=== PATIENT | female | born 1960 | race Caucasian/White ===

== ENCOUNTER 2020-10-22 10:23 | Outpatient (CLI) | payer OTHER, SELFPAY ==
[2020-10-22 10:54] LABS: Basophils Percent Auto 0.3 % (0.2-1.2); Eosinophils Absolute Auto 0.2 K/mm3 (0-0.3); Eosinophils Percent Auto 1.5 % (0-4.4); Hematocrit 49.3 % (37.0-47.0); Hemoglobin 16.2 g/dL (12.0-15.0); Immature Granulocyte Absolute 0.03 K/mm3 (0.00-0.031); Immature Granulocyte Percent A 0.3 % (0-0.5); Lymphocytes Percent Auto 28.7 % (18.3-44.2); Mean Corpuscular HGB Conc 32.9 g/dl (32-36); Mean Corpuscular Hemoglobin 29.5 pg (26-34); Mean Corpuscular Volume 89.8 fl (80-100); Mean Platelet Volume 10.8 fl (7.4-10.4); Monocytes Absolute Auto 0.8 K/mm3 (0.1-0.6); Monocytes Percent Auto 8.1 % (2.6-8.5); Neutrophils Percent Auto 61.1 % (45.5-73.1); Platelet Count Result 189 k/mm3 (150-375); Red Blood Count 5.49 M/mm3 (4.2-5.4); Red Cell Distribution Width 14.3 % (11.5-14.5); White Blood Count 9.8 K/mm3 (4.5-10.0)
[2020-10-22 11:04] LABS: Anion Gap 9 mmol/L (8-16); Blood Urea Nitrogen 26 mg/dL (7-17); Calcium 9.2 mg/dL (8.4-10.2); Carbon Dioxide 26 mmol/L (22-30); Chloride 106 mmol/L (98-107); Cholesterol 118 mg/dL (0-200); Estimated Glomerular Filt Rate > 60; Glucose 109 mg/dL (65-110); HDL Direct 49 mg/dL; Potassium 4.2 mmol/L (3.4-5.0); Sodium 141 mmol/L (137-145); Triglycerides 150 mg/dL (<150)
[2020-10-22 11:15] LABS: LDL Cholesterol Direct 51 mg/dL
[2020-10-22 11:41] LABS: Free T4 Free Thyroxine 0.98 ng/mL (0.78-2.19); Vitamin D 25 Hydroxy 21.1 ng/mL
== END 2020-10-22 10:24 | disposition home or self-care (01) ==
LOC: ANHLAB 10:25
PROVIDERS: PCP Family Medicine; Visit Provider Family Medicine
DX: I10 Essential (primary) hypertension (principal); E55.9 Vitamin D deficiency, unspecified; R79.89 Other specified abnormal findings of blood chemistry; E03.9 Hypothyroidism, unspecified; E78.2 Mixed hyperlipidemia; Z13.220 Encounter for screening for lipoid disorders
CPT/HCPCS: 36415; 80048; 80061; 82306; 84439; 84443; 85025

== ENCOUNTER 2021-04-29 10:54 | Outpatient (CLI) | payer BC, SELFPAY ==
--- NOTE | ~2021-04-29 | XR_ITS ---
EXAMINATION: XR shoulder LT min 2V, XR shoulder RT min 2V DATE: 04/29/2021 11:18 INDICATION: Right shoulder pain TECHNIQUE: 1. AP internally and externally rotated, AP oblique externally rotated and axillary views of the left shoulder were obtained. 2. AP internally and externally rotated, AP oblique externally rotated and axillary views of the righ t shoulder were obtained. COMPARISON: None FINDINGS: Normal alignment at both shoulders. No fracture. Minimal osteoarthritis at the bilateral acromioclav icular joints and mild osteoarthritis at the left glenohumeral joint. Right glenohumeral joint space appears relatively preserved. Soft tissues are unremarkable. Indeterminate 3 x 2.5 cm nodular opacity projecting over the left apex. IMPRESSION: 1. Mild right glenohumeral and minimal bilateral acromioclavicular osteoarthritis. 2. 3.0 x 2.5 cm masslike opacity projecting over the left apex. Differential includes malignancy and would recommend chest CT for further evaluation. Reviewed, dictated and finalized at location A. ITY ASSURANCE SUPERVISOR BODY IMPRESSION: 1. Mild right glenohumeral and minimal bilateral acromioclavicular osteoarthrit is. 2. 3.0 x 2.5 cm masslike opacity projecting over the left apex. Differential in cludes malignancy and would recommend chest CT for further evaluation.
== END 2021-04-29 10:55 | disposition home or self-care (01) ==
LOC: ANHIMG 11:02
PROVIDERS: PCP Family Medicine; Visit Provider Family Medicine
DX: G89.29 Other chronic pain (principal); M25.511 Pain in right shoulder; M25.512 Pain in left shoulder; M19.012 Primary osteoarthritis, left shoulder; M19.011 Primary osteoarthritis, right shoulder; R91.8 Other nonspecific abnormal finding of lung field
CPT/HCPCS: 73030

== ENCOUNTER 2021-05-05 15:27 | Outpatient (CLI) | payer BC, SELFPAY ==
--- NOTE | ~2021-05-05 | CT_ITS ---
EXAMINATION: CT diagnostic chest wo con DATE: 05/05/2021 15:50 INDICATION: B35.1 - Tinea unguium, SORE THROAT TECHNIQUE: Computed tomography (CT) of the chest was performed without intravenous contrast. Addition al 3D reconstructions utilizing coronal maximum intensity projection (MIP) were performed. Automated exposure control and iterative reconstruction technique were employed. The dose-length product was 37 4.22 mGy-cm. COMPARISON: None FINDINGS: Mild paraseptal emphysema at the bilateral upper lobes. Asymmetric scattered peripheral regions of gr oundglass opacity and consolidation significantly more prominent in the right lung. Mild tree-in-bud opacities in the lingula. 2.2 cm nodule with mildly lobular margins and central calcification at the left upper lung zone. On review of additional earlier imaging a similar sized mass is evident at the left apex on cervical spine radiographs dated 12/22/2018. Additional 6 mm right middle lobe nodule and 4 mm nodule in the right upper lobe.. No pulmonary edema, pleural effusion or pneumothorax. Heart si ze is normal. No pericardial effusion. Visualized upper abdomen is unremarkable. Mild thoracic spondy losis. IMPRESSION: 1. 2.2 cm left upper lobe nodule with central calcification and likely chronic, both features consist ent with benign sequela of old granulomatous disease. 2. Patchy peripheral predominant opacities in the right lung with regions of more subtle tree-in-bud opacity in the lingula and left lower lobe most likely infectious in etiology. 3. Mild emphysema. 4. A couple additional 4 mm and 6 mm indeterminate pulmonary nodules in the right lung. Would conside r 12 month follow-up low-dose noncontrast chest CT. Reviewed, dictated and finalized at location A. USION PRESS OPERATOR IMPRESSION: 1. 2.2 cm left upper lobe nodule with central calcification and likely chronic, both features consistent with benign sequela of old granulomatous disease. 2. Patchy peripheral predominant opacities in the right lung with regions of mo re subtle tree-in-bud opacity in the lingula and left lower lobe most likely in fectious in etiology. 3. Mild emphysema. 4. A couple additional 4 mm and 6 mm indeterminate pulmonary nodules in the rig ht lung. Would consider 12 month follow-up low-dose noncontrast chest CT.
== END 2021-05-05 15:28 | disposition home or self-care (01) ==
LOC: ANHIMG 15:29
PROVIDERS: PCP Family Medicine; Visit Provider Family Medicine
DX: B35.1 Tinea unguium (principal); J02.9 Acute pharyngitis, unspecified; J43.9 Emphysema, unspecified; R91.8 Other nonspecific abnormal finding of lung field
CPT/HCPCS: 71250

== ENCOUNTER 2021-06-20 10:03 | Outpatient (CLI) | payer BC, SELFPAY ==
--- NOTE | ~2021-06-20 | MR_ITS ---
EXAMINATION: MR cervical spine wo con DATE: 06/20/2021 10:42 INDICATION: Spondylosis without myelopathy or radiculopathy. TECHNIQUE: Magnetic resonance imaging (MRI) of the cervical spine was performed without intravenous c ontrast. Sequences included sagittal T2-weighted FSE, sagittal T2-weighted FS FSE, sagittal T1-weight ed FSE, axial MERGE, and axial T2-weighted FSE. COMPARISON: Cervical spine MRI 02/14/2019 FINDINGS: There is 6 degrees dextrocurvature of cervical spine. There is kyphosis of cervical spine. Vertebral body heights and intervertebral disc heights are normal. The spinal cord signal intensity i s normal. The following disc levels are specifically discussed: C2-C3: The disc does not extend beyond the endplate margin. There is no uncovertebral joint osteoarth ritis. There is moderate right and severe left facet joint osteoarthritis. There is mild left neural foraminal stenosis. There is no central canal stenosis. C3-C4: The disc does not extend beyond the endplate margin. There is no uncovertebral joint osteoarth ritis. There is severe bilateral facet joint osteoarthritis. There is mild right neural foraminal iqra nosis. There is no central canal stenosis. C4-C5: The disc does not extend beyond the endplate margin. There is no uncovertebral joint osteoarth ritis. There is mild right and severe left facet joint osteoarthritis. There is mild left neural fora josé stenosis. There is no central canal stenosis. C5-C6: The disc is bulging. There is mild bilateral uncovertebral joint osteoarthritis. There is mode rate right and severe left facet joint osteoarthritis. There is no neural foraminal stenosis. There i s mild central canal stenosis. C6-C7: The disc does not extend beyond the endplate margin. There is no uncovertebral joint osteoarth ritis. There is severe left facet joint osteoarthritis. There is mild left neural foraminal stenosis. There is no central canal stenosis. C7-T1: The disc does not extend beyond the endplate margin. There is no uncovertebral joint osteoarth ritis. There is moderate bilateral facet joint osteoarthritis. There is mild left neural foraminal st enosis. There is no central canal stenosis. IMPRESSION: 1. Mild cervical spondylosis, stable from 02/14/2019. Reviewed, dictated and finalized at location A.
== END 2021-06-20 10:04 ==
LOC: MICIMG 10:03
PROVIDERS: PCP Family Medicine; Visit Provider Orthopaedic Surgery
DX: M47.812 Spondylosis without myelopathy or radiculopathy, cervical region (principal)
CPT/HCPCS: 72141

== ENCOUNTER 2021-08-22 12:36 | Emergency (ER) | payer BC, SELFPAY ==
--- NOTE | ~2021-08-22 | XR_ITS ---
EXAMINATION: XR foot RT 2V DATE: 08/22/2021 13:41 INDICATION: Postreduction fracture of the right fifth proximal phalanx. TECHNIQUE: Dorsoplantar, two oblique and lateral views of the right foot were obtained. COMPARISON: None. FINDINGS: Approximately 15 degrees lateral angulation of a nondisplaced oblique fracture at the distal metadiap hysis of the right fifth proximal phalanx. Alignment is otherwise normal. No other fractures identifi ed. Mild osteoarthritis at the first metatarsophalangeal and a few interphalangeal joints. IMPRESSION: 1. 15 degrees lateral angulation of a nondisplaced extra articular fracture of the right fifth proxim al phalanx. Reviewed, dictated and finalized at location B. IMPRESSION: 1. 15 degrees lateral angulation of a nondisplaced extra articular fracture of the right fifth proximal phalanx.
[2021-08-22 12:44] VITALS: BP 167/84; PULSE 72; RESP 18; TEMP 36.4; O2SAT 96
--- NOTE | 2021-08-22 13:22 | ED.LOWEXIN ---
HPI - Extremity Injury (Lower) General Chief Complaint: Extremity Injury, Lower Stated Complaint: R 5TH TOE INJURY Time Seen by Provider: 08/22/21 12:57 History of Present Illness HPI Narrative: Patient presents with a right fifth toe injury. Reports she struck it against the wood leg of her couch she noticed an obvious deformity and pain so she came to ER for further evaluation. Reports paresthesias to the fifth digit on the right elbow. Pain in the right fifth toe is achy, constant, no radiation, worse with moving the foot. Related Data Home Medications Medication Instructions Recorded Confirmed fexofenadine-pseudoephedrine ER 1 tablet PO DAILY 09/15/19 06/05/21 180 mg-240 mg tablet,ext.release 24 hr (Laura-D 24 Hour) Allergies Allergy/AdvReac Type Severity Reaction Status Date / Time No Known Allergies Allergy Verified 06/25/21 09:43 Review of Systems Review of Systems: CONSTITUTIONAL: Denies fever, chills, or sweats. EYES: Denies visual changes, redness, or discharge. ENT: Denies rhinorrhea, congestion, sore throat, or otalgia. CARDIOVASCULAR: Denies chest pain, palpitations, or edema. RESPIRATORY: Denies cough or dyspnea. GASTROINTESTINAL: Denies abdominal pain, nausea, vomiting, or diarrhea. GENITOURINARY: Denies dysuria or hematuria. SKIN: Denies rash or itching. MUSCULOSKELETAL: Denies back pain, joint pain, or myalgia. NEUROLOGIC: Denies headache, numbness, dizziness, or weakness. PSYCHIATRIC: Denies anxiety or depression. All systems reviewed & are unremarkable except as noted in HPI and below PMFSH Past Medical History Medical History Anxiety disorder, unspecified Apnea BMI 36.0-36.9,adult BMI 37.0-37.9, adult Cervical spondylosis Essential (primary) hypertension History of stress test (~10/2020) Hypothyroidism Irritable bowel syndrome with constipation Lack of motivation Low vitamin D level Lung infiltrate Mixed hyperlipidemia Mixed hyperlipidemia Moderate persistent asthma, uncomplicated Onychomycosis Pain due to onychomycosis of nail Pharyngitis Primary osteoarthritis, right shoulder Vitamin D deficiency, unspecified Surgical History Surgical History History of cataract extraction History of hysterectomy Family History Family History Mother Hypertension Cerebrovascular accident Family history of malignant neoplasm of uterus Family history of malignant neoplasm of breast in first degree relative Father Family history of coronary artery disease Sibling Diabetes mellitus Renal failure COPD (chronic obstructive pulmonary disease) Sibling No problems noted. 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 HEAD: Normocephalic, atraumatic. EYES: PERRLA and EOMI. ENT: Nares clear, no rhinorrhea or epistaxis. Mucous membranes moist. NECK: Supple. No masses. No JVD EXTREMITIES: Large deformity noted to the right fifth toe with approximately 45 degrees of angulation laterally there is diffuse tenderness to the toe there is no open or draining wounds SKIN: Warm, dry, no rash. NEURO: No focal deficits. Alert and oriented x3. PSYCH: Normal mood and affect. Course Reevaluation(s) Reevaluation #1: Patient felt much improved after the reduction
[2021-08-22] MEDS: KETOROLAC 30 MG/ML VIAL (*BKC) IM (13:46)
[2021-08-22 14:49] VITALS: PULSE 70; RESP 20; O2SAT 98
== END 2021-08-22 14:50 | disposition home or self-care (01) ==
PROVIDERS: Emergency Provider Emergency Medicine; PCP Family Medicine
DX: S92.514A Nondisplaced fracture of proximal phalanx of right lesser toe(s), initial encounter for closed fracture (principal); I10 Essential (primary) hypertension; E03.9 Hypothyroidism, unspecified; E78.2 Mixed hyperlipidemia; F17.210 Nicotine dependence, cigarettes, uncomplicated; W22.03XA Walked into furniture, initial encounter
CPT/HCPCS: 28515; 73620; 96372; 99284; 99285; J1885

== ENCOUNTER 2021-09-08 09:26 | Outpatient (CLI) | payer BC, SELFPAY ==
--- NOTE | ~2021-09-08 | CT_ITS ---
EXAMINATION: CT diagnostic chest wo con DATE: 09/08/2021 09:52 INDICATION: Indeterminate airspace opacities on CT TECHNIQUE: Computed tomography (CT) of the chest was performed without intravenous contrast. The dose -length product (DLP) was 645.56 mGy-cm. Automated exposure control and iterative reconstruction tech nique were employed. COMPARISON: 05/05/2021 FINDINGS: The previously described patchy subpleural airspace opacities have essentially resolved, co nsistent with infection/inflammation. There is a stable 2.2 cm nodule of the left lung apex with cent ral calcification. There are scattered stable pulmonary nodules measuring up to 6 mm. The heart size is normal. No pleural effusion or pneumothorax. There is chronic mild mediastinal lymphadenopathy wit hout significant change. There is mild thoracic spondylosis. IMPRESSION: 1. Essentially resolved subpleural airspace opacities of the lungs, consistent with infection/inflamm ation. 2. Multiple stable pulmonary nodules, likely old granulomatous disease. Consider follow-up CT in 12 [facility]. Reviewed, dictated and finalized at location A. IMPRESSION: 1. Essentially resolved subpleural airspace opacities of the lungs, consistent with infection/inflammation. 2. Multiple stable pulmonary nodules, likely old granulomatous disease. Conside r follow-up CT in 12 months.
== END 2021-09-08 09:27 ==
PROVIDERS: PCP Family Medicine; Visit Provider Internal Medicine Pulmonary Disease
DX: R91.8 Other nonspecific abnormal finding of lung field (principal); R91.1 Solitary pulmonary nodule
CPT/HCPCS: 71250

== ENCOUNTER 2021-09-23 14:42 | Outpatient (CLI) | payer BC, SELFPAY ==
--- NOTE | 2021-09-23 16:45 | WPDSIXMINUTE ---
Six Minute Walk Procedure Procedure Performed Pulmonary Stress Test (6 min walk) Six Minute Walk Six Minute Walk: This is a 6 minute walk test. The test was performed and interpreted in accordance with the 2014 ERS/ATS task force guidelines. Findings: The patient's resting room air oxygen saturation measured by pulse oximetry was 92% and heart rate was 75 bpm. Patient ambulated for 274 meters and oxygen saturation remained 89 to 92%. Heart rate at the end of the study was 112 bpm. The patient did not qualify for supplemental oxygen at rest or with ambulation. There are no prior studies for comparison.
--- NOTE | 2021-09-23 16:46 | WPDPFTINT ---
PFT Procedure Performed PFT Procedure Performed Spirometry with Pre/Post Bronchodilator Plethysmography (Lung Vol) Diffusing Cap (DLCO) Flow Vol Loop PFT Interpretation This is a pulmonary function test with pre and post-bronchodilator spirometry, plethysmography and diffusing capacity. The test was performed and results interpreted in accordance with the 2019 and 2005 ATS/ERS Task Force guidelines respectively using the Global Lung Function Initiative-2012 reference equations. Patient demonstrated good effort and cooperation. Reproducibility criteria were met. The quality of the pre bronchodilator spirometry maneuver was Grade A and post bronchodilator spirometry maneuver was Grade A. Findings: Spirometry:There is decreased maximal expiratory airflow with a concave expiratory flow tracing. The pre bronchodilator FVC is 2.34 L, 79% predicted. The pre bronchodilator FEV1 is 1.27 L, 54% predicted. The pre bronchodilator FEV1: FVC ratio is 54%. The post bronchodilator FVC is 2.33 L, representing no change. The post bronchodilator FEV1 is 1.37 L, representing a 9% increase. The post bronchodilator FEV1: FVC ratio is 59%. Plethysmography: The total lung capacity is 5.59 L, 118% predicted. The functional residual capacity is 3.67 L, 139% predicted. The residual volume is 3.13 L, 169% predicted. Diffusing capacity: The diffusing capacity unadjusted for hemoglobin and carboxyhemoglobin is 15.0, 72% predicted. The diffusing capacity adjusted for alveolar volume is 4.03, 88% predicted. In comparison to previous pulmonary function test on 07/17/2014 the post bronchodilator FVC is unchanged from 2.47 L to 2.33 L. The post bronchodilator FEV1 is unchanged from 1.49 L to 1.37 L. The total lung capacity is unchanged from 5.68 L to 5.59 L. The functional residual capacity is unchanged from 3.94 L to 3.67 L. The residual volume is unchanged from 3.27 L to 3.13 L. The diffusing capacity unadjusted for hemoglobin and carboxyhemoglobin is unchanged from 14.8 to 15.0. The diffusing capacity adjusted for alveolar volume is unchanged from 3.81 to 4.03. Impression: There is a moderately severe obstructive abnormality without significant improvement after inhaling a single dose of albuterol. The increase in residual volume is consistent with air trapping from an obstructive abnormality. The diffusing capacity is normal. In comparison to previous pulmonary function test on 07/17/2014 there has been no significant change in the FVC, FEV1, total lung capacity, functional residual capacity, residual volume and DLCO.unadjusted for hemoglobin and carboxyhemoglobin is moderately decreased and normalizes when adjusted for alveolar volume. Clinical correlation is recommended.
== END 2021-09-23 14:43 | disposition home or self-care (01) ==
PROVIDERS: PCP Family Medicine; Visit Provider Internal Medicine Pulmonary Disease
DX: J43.8 Other emphysema (principal); R94.2 Abnormal results of pulmonary function studies
CPT/HCPCS: 94060; 94618; 94726; 94729

== ENCOUNTER 2021-11-13 10:00 | Outpatient (RCR) | payer BC, SELFPAY ==
--- NOTE | 2021-10-20 15:01 | PTOPEVAL ---
PHYSICAL THERAPY EVALUATION AND PLAN OF CARE Thank you for referring Becky Buckley to [facility].? The patient is scheduled to be seen for therapy? 1x/week for 5 weeks. Please review, sign, date and return this plan of care ANGELINE. I agree with and certify that the following plan of care is medically necessary. Referring Physician Date Attending Provider: Lincoln Alejandre MD Diagnosis low back pain Onset chronic Subjective Information states that when she is Query Text:As Reported By Patient/ walking, intermittently, she Family will start to feel pain and tightness in the fronts of her thighs and it will creep up into her low back. States that sometimes it takes a couple of minutes that sometimes she can walk as far as she wants. States that when she sits too long her back will start to hurt and when she stands too long her back will start to hurt. No history of falls. Last episode of back pain was 4 days ago. Self Report Pain Assessment Spine, Lumbar Reported Pain Level 0 Greatest Pain Intensity 8 Pain Aggravating Factors Sitting,Walking,Weight Bearing /Standing Lumbar ROM Lumbar Flexion Active Floor Query Text:Hands to: Lumbar Extension (0-40) 30 Query Text:Active in Degrees Lumbar Comments right rotation greater than left rotation Lower Extremity Muscle Strength Testing General Lower Extremity Strength Reason Not Measured WFL/Left,WFL/Right Muscle Length Testing Muscle Length Testing Dk Test Shortened Muscles Short (R) Iliopsoas,Short (L) Iliopsoas,Short (R) Rectus Femoris Piriformis w/Hip Flexion >90 Degrees (R) Severe Tightness,(L) Severe Tightness Piriformis w/Hip Flexion <90 Degrees (R) Moderate Tightness,(L) Moderate Tightness Left Hamstring Length -30 Query Text:(90 - 90 Position) Right Hamstring Length -30 Query Text:(90 - 90 Position) Posture Supine Position Leg Length Discrepancy right leg long and right ASIS shifted up indicating posterior innominate Palpation tender to palpate glutes and muscles of low back;
--- NOTE | 2021-10-29 09:52 | PCPTNOTE ---
Patient did not show up for scheduled appointment this date. Called and left voicemail about missed appointment and reminded Pt of upcoming appointment on 11/06/21 @ 09:30. Informed Pt to please call if she is unable to make it. This is Pt's first N/S.
--- NOTE | 2021-11-20 11:24 | PCPTNOTE ---
Patient did not show up for scheduled appointment this date. Called and had to leave a message.
--- NOTE | 2021-11-26 11:22 | PCPTNOTE ---
pt did not show for today's reeval appt; called pt and left voicemail--if need additional therapy, need to call in the next few days, otherwise will be d/c'd;
--- NOTE | 2021-12-08 08:50 | PCPTNOTE ---
PHYSICAL THERAPY DISCHARGE 12-08-21 Attending Provider: Lincoln Alejandre MD Patient:Becky Buckley Date of :1960 Becky has received 2 PT sessions, on October 20 and for the diagnosis of low back pain. She then stopped attending therapy. Therefore, she will be discharged from PT at this time. The goals were not met. Thank you for referring Ms. Buckley to [facility].
== END 2021-12-08 10:56 | disposition home or self-care (01) ==
LOC: ANHPT 10:00
PROVIDERS: PCP Family Medicine; Visit Provider Family Medicine
DX: M54.50 Low back pain, unspecified (principal); M79.604 Pain in right leg; M79.605 Pain in left leg; G89.29 Other chronic pain
CPT/HCPCS: 97014; 97110; 97140; 97161; 99199; G0283

== ENCOUNTER 2021-12-03 15:40 | Outpatient (CLI) | payer BC, SELFPAY ==
--- NOTE | ~2021-12-03 | XR_ITS ---
EXAM: XR elbow RT 2V, XR forearm RT 2V, XR wrist RT w scaphoid DATE: 12/03/2021 16:09 HISTORY: M79.601 - Pain in right arm, POSTERIOR PAIN, distal forearm pain, INJURY X 2DAYS . COMPARISON: None available. FINDINGS: Normal mineralization. Transverse lucency extending through the lateral epicondylar region of the elbow likely represents a skinfold, no correlate seen in other views. No elbow joint effusion . No fracture or dislocation. No lytic or blastic lesion. Joint spaces are maintained. No erosion or periosteal change. Soft tissues within normal limits. IMPRESSION: No acute osseous finding in the right elbow, forearm, or wrist. Reviewed, dictated and finalized at location K. IMPRESSION: No acute osseous finding in the right elbow, forearm, or wrist. IMPRESSION: No acute osseous finding in the right elbow, forearm, or wrist.
== END 2021-12-03 15:41 | disposition home or self-care (01) ==
LOC: ANHIMG 15:48
PROVIDERS: PCP Family Medicine; Visit Provider Nurse Practitioner Family
DX: M79.601 Pain in right arm (principal)
CPT/HCPCS: 73070; 73090; 73110

== ENCOUNTER 2022-04-30 09:00 | Outpatient (RCR) | payer OTHER, BC, SELFPAY ==
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
--- NOTE | 2022-02-17 14:00 | PCPTNOTE ---
Patient's scheduled appointment had to be cancelled for this date secondary to the therapist being out of the office. Patient was called three times to let her know that today's appointment had to be cancelled and was going to be asked about rescheduling the missed appointment.
--- NOTE | 2022-03-03 13:09 | PCPTNOTE ---
Patient called & cancelled scheduled appointment this date due to being sick.
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
--- NOTE | 2022-04-30 09:51 | PTOPDC ---
Assessment and note entered by Lashon Davalos, PT Assessment Status Discharge Diagnosis neck and back pain Onset 01/20/22 Subjective Information Pt reports feeling 70% improved overall. States multiple times during therapy session she feels this is as good as it's going to get . Reports she would like to return to her Bowflex and stationary bike for fitness, that she has gained 35 lbs in the last year. Reported Pain Level Pain Score 0,2: Self Report Assessment PT Clinical Summary Pt has attended 10 therapy sessions since 02/11/22 with 3 cancellations and 1 no-show appointment. During her previous treatments, her participation and tolerance were variable due to her complaints of pain. Pt verbalizes feeling this is as good as it's going to get multiple times, demo's poor postures even with postural education. Chart review shows she was instructed in how to return to her fitness activities last reevaluation but today her comments lead therapist to believe she has not started this yet. Her evaluation measurements today remain largely unchanged, but overall she reports feeling 70% improved and overall reports less pain, reaching 0/10 in neck and back at times. Today education was further reenforced that she may continue improving independently with appropriate postures, abdominal bracing for improved stability, and slowly returning to her fitness activities. She was also encouraged to return to therapy if she finds in the next 3-6 months she does not feel she is progressing and needs skilled services. Thus pt is being discharged from current plan of care for max benefit being reached.
== END 2022-04-30 11:51 | disposition home or self-care (01) ==
LOC: ANHPT 09:00
PROVIDERS: PCP Family Medicine; Visit Provider Family Medicine
DX: M54.50 Low back pain, unspecified (principal)
CPT/HCPCS: 97014; 97110; 97140; 97161; 99199; G0283

== ENCOUNTER 2022-06-02 10:49 | Emergency (ER) | payer BC, SELFPAY ==
[2022-06-02] VITALS (20 sets, daily range): BP systolic 106–150; BP diastolic 64–89; PULSE 62–77; RESP 14–18; TEMP 36.7; O2SAT 92–96
--- NOTE | ~2022-06-02 | CT_ITS ---
EXAMINATION: CT abdomen pelvis wo con DATE: 06/02/2022 12:57 INDICATION: Left flank pain. TECHNIQUE: Computed tomography (CT) of the abdomen and pelvis was performed without intravenous contr ast. Automated exposure control and iterative reconstruction technique were employed. The dose-length product was 485.02 mGy-cm. COMPARISON: CT abdomen and pelvis 12/02/2012 FINDINGS: The visualized portions of the lung bases demonstrates mild atelectasis. No pleural effusio n. The heart size is normal. No pericardial effusion. The liver, gallbladder, spleen, pancreas, and a drenal glands are normal. There is cortical thinning of the kidneys. There is a 2 mm stone in left ki dney. There is diverticulosis of the colon without evidence of diverticulitis. The appendix is normal . There are no dilated loops of bowel. There are no pathologically enlarged lymph nodes. There is no free intraperitoneal fluid. There is severe lower lumbar spondylosis. IMPRESSION: 1. Small nonobstructing left kidney stone. Reviewed, dictated and finalized at location A.
[2022-06-02 12:12] LABS: Basophils Percent Auto 0.4 % (0.2-1.2); Eosinophils Absolute Auto 0.2 K/mm3 (0-0.3); Eosinophils Percent Auto 1.8 % (0-4.4); Hematocrit 54.4 % (37.0-47.0); Hemoglobin 18.1 g/dL (12.0-15.0); Immature Granulocyte Absolute 0.05 K/mm3 (0.00-0.031); Immature Granulocyte Percent A 0.5 % (0-0.5); Lymphocytes Absolute Auto 2.46 K/mm3 (0.9-3.2); Lymphocytes Percent Auto 24.3 % (18.3-44.2); Mean Corpuscular HGB Conc 33.3 g/dl (32-36); Mean Corpuscular Hemoglobin 30.1 pg (26-34); Mean Corpuscular Volume 90.5 fl (80-100); Mean Platelet Volume 11.5 fl (7.4-10.4); Monocytes Absolute Auto 0.9 K/mm3 (0.1-0.6); Neutrophils Absolute Auto 6.5 K/mm3 (1.3-6.7); Platelet Count Result 259 k/mm3 (150-375); Red Blood Count 6.01 M/mm3 (4.2-5.4); Red Cell Distribution Width 14.5 % (11.5-14.5); White Blood Count 10.1 K/mm3 (4.5-10.0)
[2022-06-02 12:17] LABS: Appearance Urine Cloudy (Clear); Bacteria Urine 1+ /hpf; Bilirubin Urine Negative (Negative); Blood Urine 2+ (Negative); Color Urine Dark Yellow (Yellow); Glucose Urine UA Negative (Negative); Ketones Urine Negative (Negative); Leukocyte Esterase Ur 3+ LEU/UL (Negative); Nitrate Urine Positive (Negative); Protein Urine 1+ mg/dL (Negative); RBC Urine 21-50 /hpf (0-2); Specific Grav Ur 1.021 (1.001-1.035); Squamous Epithelial Cell Urine Few /hpf (Few); WBC Urine >100 /hpf
[2022-06-02 12:20] LABS: Add Urine Microscopic? YES
--- NOTE | 2022-06-02 12:38 | ED.ABDPAIN ---
HPI - Abdominal Pain General Chief Complaint: Abdominal Pain Stated Complaint: my ovary has flipped Time Seen by Provider: 06/02/22 12:05 History of Present Illness HPI narrative: Patient is a 61-year-old female with a history of hypertension, hyperlipidemia presenting with abdominal pain. Patient states that for the last 3 days she has had left lower quadrant pain that radiates into her left flank. States that it waxes and wanes in intensity. States she has been nauseated with decreased appetite but no vomiting. States that the pain right now is actually improved. States it is only a 2 out of 10 and she does not need anything for pain control right now. She denies fevers or chills, headache, chest pain, shortness of breath, dysuria, hematuria, diarrhea, constipation Related Data Home Medications Medication Instructions Recorded Confirmed fexofenadine-pseudoephedrine ER 1 tablet PO DAILY 09/15/19 01/27/22 180 mg-240 mg tablet,ext.release 24 hr (Laura-D 24 Hour) Allergies Allergy/AdvReac Type Severity Reaction Status Date / Time No Known Allergies Allergy Verified 06/02/22 11:41 Review of Systems Review of Systems: All systems reviewed & are unremarkable except as noted in HPI and below PMFSH Past Medical History Medical History Anxiety disorder, unspecified Apnea BMI 36.0-36.9,adult BMI 37.0-37.9, adult Cervical spondylosis Cervical strain Essential (primary) hypertension History of stress test (~10/2020) Hypothyroidism Irritable bowel syndrome with constipation Lack of motivation Leg pain Low back pain Low vitamin D level Lumbar strain Lung infiltrate Mixed hyperlipidemia Mixed hyperlipidemia Moderate persistent asthma, uncomplicated Onychomycosis Pain due to onychomycosis of nail Pharyngitis Primary osteoarthritis, right shoulder Skin lesion of chest wall Vitamin D deficiency, unspecified Surgical History Surgical History History of cataract extraction History of hysterectomy Family History Family History Mother Hypertension Cerebrovascular accident Family history of malignant neoplasm of uterus Family history of malignant neoplasm of breast in first degree relative Father Family history of coronary artery disease Sibling Diabetes mellitus Renal failure COPD (chronic obstructive pulmonary disease) Sibling No problems noted. 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 HEAD: Normocephalic, atraumatic. EYES: PERRLA and EOMI. ENT: Nares clear, no rhinorrhea or epistaxis. Mucous membranes dry NECK: Supple. CHEST: Clear to auscultation. No respiratory distress. No wheezing HEART: Regular rate and rhythm. ABDOMEN: Soft, mild tenderness left lower quadrant, no rebound or guarding EXTREMITIES: Normal range of motion. No edema. SKIN: Warm, dry, no rash. NEURO: No focal deficits. Alert and oriented x3. PSYCH: Normal mood and affect. Course Vital Signs Vital signs: Vital Signs Temperature 98.0 F 06/02/22 11:35 Pulse Rate 77 06/02/22 11:35 Respiratory Rate 14 06/02/22 11:35 Blood Pressure 150/78 H 06/02/22 11:35 Pulse Oximetry
[2022-06-02 13:12] LABS: Alanine Aminotransferase 23 U/L (6-35); Alkaline Phosphatase 86 U/L (38-126); Anion Gap 4 mmol/L (8-16); Aspartate Amino Transferase 24 U/L (14-36); Bilirubin,Total 0.6 mg/dL (0.2-1.3); Blood Urea Nitrogen 24 mg/dL (7-17); Calcium 8.9 mg/dL (8.4-10.2); Carbon Dioxide 32 mmol/L (22-30); Chloride 104 mmol/L (98-107); Estimated CRCL calculation 51 ml/min; Estimated Glomerular Filt Rate 51; Glucose 105 mg/dL (65-110); Lipase 63 U/L (23-300); Potassium 4.1 mmol/L (3.4-5.0); Sodium 140 mmol/L (137-145)
[2022-06-02] MEDS: SODIUM CHLORIDE 0.9% IV 1,000 ML 999 ML IV CONT (13:13)
== END 2022-06-02 14:49 | disposition home or self-care (01) ==
PROVIDERS: Physician Assistant; Emergency Provider Emergency Medicine; PCP Family Medicine
DX: N39.0 Urinary tract infection, site not specified (principal); N20.0 Calculus of kidney; I10 Essential (primary) hypertension; E78.2 Mixed hyperlipidemia; J45.40 Moderate persistent asthma, uncomplicated; K58.1 Irritable bowel syndrome with constipation; M19.011 Primary osteoarthritis, right shoulder; E55.9 Vitamin D deficiency, unspecified; Z98.49 Cataract extraction status, unspecified eye; Z90.710 Acquired absence of both cervix and uterus; F17.210 Nicotine dependence, cigarettes, uncomplicated
CPT/HCPCS: 36415; 74176; 80053; 81001; 83690; 85025; 87086; 87147; 87181; 87186; 96365; 99284; J0696; J7030

== ENCOUNTER 2024-11-23 11:42 | Outpatient (CLI) | payer MEDICARE, SELFPAY ==
--- OUTSIDE RECORDS SUMMARY | 2009-12-31 08:00 | XMS_ITS | Continuity of Care Document ---
Author Organization [facility] Address [address] [place] [address] [address] [place] [address] Phone Care Team Providers Care Electronic Systems Technician Name Role Phone Segal OD, Andrew Unavailable Unavailable Procedures Procedure Date Eye Exam Established Pt Post-op Follow-up Visit Post-op Follow-up Visit Remove Cataract, Insert Lens Office/outpatient Visit, [facility] Echo Exam Of Eye Advance Directives Directive Yes / No Effective Date File Name No Information Encounters Encounter Description Practice Location Reason(s) For Visit Diagnoses Date Provider Providers Copied on Encounter [facility], [address] [place] [address] [address], [place], [place], [id number], tel:[phone] [facility] [place] No Information 2-201 0 Segal OD Andrew. [address] [facility] , [address], [place], [place], [facility], [place]. tel:[phone] [facility], [address] [place] [address] [address], [place], [place], [id number], [place] tel:[phone] [facility] [place] No Information 2-200 8 Doisy Edmary. [address] [facility] , [address], [place], [address], [place]. tel:[phone] Referring Provider: Andrew Mederos, [address] [facility], [place], [place], [facility]. tel:[phone] [facility], [id number] [place] [address] [address], [place], [place], [id number], tel:[phone] [facility] [place] No Information 7200 8 Doisy Edward. [facility] [facility] [place] , [address], [place], [place], [facility], . tel:[phone] Referring Provider: Andrew Mederos, [address] [place] [address], [facility]. tel:[phone] [facility], [address] [place] [address] [address], [place], [place], [id number], [place] tel:[phone] [facility] No Information 0 6200 8 Doisy Edward. [facility] , [address], [place], [place], [facility], [place]. tel:[phone] Referring Provider: Andrew Mederos, [address] [place] [address], [facility]. tel:[phone] Office/outpat ient Visit, [facility], [address] [place] [address] [address], [place], [place], [id number], tel:[phone] SEC [facility] No Information 3200 8 Doisy Edmary. [address] [place] [address] , [address], [place], [place], [facility], . tel:[phone] Referring Provider: Andrew Mederos, [address] [place] [address], [facility]. tel:[phone] Family History Family Member Type Diagnosis Age At Onset No Information Payers Payer name Insurance type Covered green party ID Felipa barrientos(s) [facility] Commercial CI [id number] Social History Type Description Quantity Date Captured [...]
--- NOTE | ~2024-11-23 | XR_ITS ---
EXAMINATION: XR lumbar spine 6V w bending DATE: 11/23/2024 12:22 INDICATION: Lumbago with sciatica. TECHNIQUE: 7 images of the lumbar spine were obtained. COMPARISON: None FINDINGS: Mild dextro convex curvature of the lumbar spine. There is bowel gas and stool projecting over the pelvis which limits evaluation. There are a few less than 1.0 cm calcifications projecting over the pelvis which may represent phleboliths, however, a distal ureteral stone or bladder stone or possible. L umbar vertebral body heights and alignment are within normal limits. No compression fracture in the lumbar spine. Severe intervertebral disc space narrowing at L5-S1 level. Moderate degenerative change in the lower lumbar facet joints. Partial calcification of the abdominal aorta. No abnormal subluxation with flexion or extension. IMPRESSION: 1. No compression fracture in the lumbar spine. 2. Moderate to severe degenerative change at the L5-S1 level. If symptoms persist or worsen, consider an MRI of the lumbar spine for further assessment. Reviewed, dictated and finalized at location Q.
--- OUTSIDE RECORDS SUMMARY | 2024-11-23 12:18 | XMS_ITS | Encounter Summary ---
Author Organization [facility] Address [address] [place] [address] Care Team Providers Care Paving Inspector Name Role Phone Unavailable Primary Care Provider Unavailabl e Encounter Details Date Type Department Care Team (Late st Contact Info) Description 06/18/2022 Lab Requisition [facility] DermPath Lab [address] [place] [id number] Lincoln Alejandre MD [address] [place] [address] Social History Tobacco Use Types Packs/Day Years Used Date Smoking Tobacco: Never Assessed Comments Unknown Sex and Gender Information Value Date Recorded Sex Assigned at Not on file Legal Sex Female 1:30 PM CDT Gender Identity Not on file Sexual Orientation Not on file documented as of this encounter Plan of Treatment Not on file documented as of this encounter Procedures Procedure Name Priority Date/Time Associated Diagnosis Comments DERMATOPATHOLOGY Routine 06/16/2022 12:0 0 AM CDT documented in this encounter Results * DERMATOPATHOLOGY (06/16/2022 12:00 AM CDT) Case Report Dermatopathology Report Case: [id number] Authorizing Provider: Lincoln Alejandre MD Collected: 06/16/2022 12:00 AM Ordering Location: [facility] DermPath Lab Received: 06/18/2022 06:10 AM Pathologist: Katy Boyer MD Specimen: Skin, right upper chest 2:53 PM CDT DERMATOPATHOLOGY LABORATORY Final Diagnosis Specimen A. SKIN, right upper chest: SEBORRHEIC KERATOSIS (L82.1) 3 2:53 PM CDT DERMATOPATHOLOGY LABORATORY at 1453 CDT Clinical History Changing lesion 3 2:53 PM CDT DERMATOPATHOLOGY LABORATORY Gross Description Specimen A: Received is one formalin filled container labeled with the patient's name and designated right upper chest. The specimen consists of a shave biopsy measuring 8x8x3 mm. Jar 0. 3 2:53 PM CDT DERMATOPATHOLOGY LABORATORY Microscopic Description Specimen A. SKIN, right upper chest: Sections show an acanthotic lesion composed of relatively uniform keratinocytes. There is hyperkeratosis and pseudo horn cysts formation. 3 2:53 PM CDT DERMATOPATHOLOGY LABORATORY Disclaimer An external and internal positive and negative controls are appropriate for the histochemical, immunohistochemical and immunofluorescence stain(s) in this case (if any), except where stated explicitly. The performance characteristics of the stain(s) cited in this report were developed and its performance characteristic determined by the Dermatopathology Laboratory at [facility], directed by Dr. Deedee Vyas. These tests need not be, and therefore are not, approved by the [place] Food and Drug Administration. The tests are used for clinical purposes. Billing Codes Specimen Charges Stain Charges 77396 1 3 2:53 PM CDT DERMATOPATHOLOGY LABORATORY Embedded Images 3 2:53 PM CDT DERMATOPATHOLOGY LABORATORY Pathology/Cytolog y TISSUE SPECIMEN FROM SKIN / Unknown 06/16/2022 06/18/2022 6:10 AM CDT Lincoln Alejandre MD LAB - PATHOLOGY/CYTOLOGY [facility] Final Result DERMATOPATHOLOGY LABORATORY [facility] - Department of Dermatology [address] [place] [address], [facility] [phone] documented in this encounter Visit Diagnoses Not on filedocumented in this encounter
--- OUTSIDE RECORDS SUMMARY | 2024-11-23 12:18 | XMS_ITS | Clinical Summary ---
Author Organization [facility] Address [address] [place] [address] Care Team Providers Care Industry Consultant Name Role Phone Unavailable Primary Care Provider Unavailabl e Source Comments [facility] [employer],non-owned Affiliates and Associated Physician Practices is amultiple site organization consisting of ambulatory clinics and hospital sitesin [place], [place], [place] and [place]. This disclosure is being madepursuant to the Care Everywhere program and may not contain all information available regarding this patient. Last updated 17.[facility] [employer] Social History Tobacco Use Types Packs/Day Years Used Date Smoking Tobacco: Never Assessed Comments Unknown Sex and Gender Information Value Date Recorded Sex Assigned at Not on file Legal Sex Female 1:30 PM CDT Gender Identity Not on file Sexual Orientation Not on file Plan of Treatment Health Maintenance Due Date Last Done Comments COLOGUARD (AGES 45-75) - COL ON CA SCREENING 1960 COLON MONITORING 1960 COLONOSCOPY - COLON CA SCREENING 1961 CT COLONOGRAPHY - COLON CA SCREENING 1960 Colorectal Cancer Screening 1960 FIT - COLON CA SCREENING 1960 FLEX SIG - COLON CA SCREENING 1960 LIPID TESTING 1960 MAMMOGRAM 1960 HIV SCREENING 1976 HEPATITIS C SCREENING 10/29/1979 DTAP/TDAP/TD VACCINES (1 - Tdap) 1980 PAP SMEAR 1982 PNEUMOCOCCAL VACCINE 50+ (1 of 1 - PCV) 11/03/2011 ZOSTER VACCINE (1 of 2) 11/03/2011 COVID-19 VACCINE ( - 2023-2 5 season) 2023 DEPRESSION SCREENING 03/22/2024 INFLUENZA VACCINE (#1) 2024 Respiratory Syncytial Virus (RSV) Vaccine Pt: or over 60 yrs (1 - 1-dose 75+ series) 2036 HEPATITIS B VACCINE Aged Out No longe r eligible based on patient's age to complete this topic HIB VACCINE Aged Out No longer eligi ble based on patient's age to complete this topic HPV VACCINE Aged Out No longer eligi ble based on patient's age to complete this topic MENINGOCOCCAL (Group B) VACC INE SHARED DECISION-MAKING Aged Out No longer eligibl e based on patient's age to complete this topic MENINGOCOCCAL GROUPS A/C/Y/W VACCINE Aged Out No longer eligible b ased on patient's age to complete this topic Insurance ANTHEM
[2024-11-23 13:15] LABS: Hematocrit 46.8 % (37.0-47.0); Hemoglobin 15.1 g/dL (12.0-15.0); Immature Granulocyte Percent A 0.5 % (0-0.5); Lymphocytes Absolute Auto 2.90 K/mm3 (0.9-3.2); Mean Corpuscular HGB Conc 32.3 g/dl (32-36); Mean Corpuscular Hemoglobin 29.4 pg (26-34); Mean Corpuscular Volume 91.2 fl (80-100); Nucleated Red Blood Cells Absolute Auto 0.000 K/mm3 (0.0-0.012); Nucleated Red Blood Cells Perc 0.0 % (0.0-0.2); Platelet Count Result 204 k/mm3 (150-375); Red Blood Count 5.13 M/mm3 (4.2-5.4); White Blood Count 7.6 K/mm3 (4.5-10.0)
[2024-11-23 13:24] LABS: Alanine Aminotransferase 24 U/L (6-35); Albumin Level 3.9 g/dL (3.5-5.1); Alkaline Phosphatase 67 U/L (38-126); Anion Gap 7 mmol/L (4-12); Aspartate Amino Transferase 31 U/L (14-36); Bilirubin,Total 0.5 mg/dL (0.2-1.3); Blood Urea Nitrogen 20 mg/dL (7-17); Calcium 9.3 mg/dL (8.4-10.2); Carbon Dioxide 26 mmol/L (22-30); Chloride 106 mmol/L (98-107); Estimated Glomerular Filt Rate > 60; Glucose 123 mg/dL (65-110); Potassium 4.0 mmol/L (3.4-5.0); Sodium 139 mmol/L (137-145); Total Protein 7.6 g/dL (6.3-8.2)
[2024-11-23 13:45] LABS: Free T4 Free Thyroxine 0.88 ng/dL (0.78-2.19)
[2024-11-23 14:06] LABS: Thyroid Stimulating Hormone 3.660 uIU/mL (0.465-4.680)
== END 2024-11-23 11:43 | disposition home or self-care (01) ==
PROVIDERS: PCP Family Medicine; Visit Provider Family Medicine
DX: E03.9 Hypothyroidism, unspecified (principal); E55.9 Vitamin D deficiency, unspecified; K58.1 Irritable bowel syndrome with constipation; I10 Essential (primary) hypertension; D58.2 Other hemoglobinopathies; M54.41 Lumbago with sciatica, right side; G89.29 Other chronic pain
CPT/HCPCS: 36415; 72114; 80048; 80076; 82306; 84439; 84443; 85025

== ENCOUNTER 2025-01-30 19:25 | Emergency (ER) | payer MEDICARE, SELFPAY ==
--- OUTSIDE RECORDS SUMMARY | 2009-12-31 07:00 | XMS_ITS | Continuity of Care Document ---
Author Organization [facility] Address [address] [place] [address] [address] [place] [address] Phone Care Team Providers Care Career Development Counselor Name Role Phone Segal OD, Adnrew Unavailable Unavailable Procedures Procedure Date Eye Exam Established Pt Post-op Follow-up Visit Post-op Follow-up Visit Remove Cataract, Insert Lens Office/outpatient Visit, [facility] Echo Exam Of Eye Advance Directives Directive Yes / No Effective Date File Name No Information Encounters Encounter Description Practice Location Reason(s) For Visit Diagnoses Date Provider Providers Copied on Encounter [facility], [address] [place] [address] [address], [place], [place], [id number], tel:[phone] [facility] [place] No Information 2-201 0 Segal OD Andrew. [address] [facility] , [address], [place], [place], [facility], [place]. tel:[phone] [facility], [address] [place] [address] [address], [place], [place], [id number], [place] tel:[phone] SEC [facility] [place] No Information 2-200 8 Doisy Edmary. [address] [facility] , [address], [place], [address], [place]. tel:[phone] Referring Provider: Andrew Mederos, [address] [facility], [place], [place], [facility]. tel:[phone] [facility], [id number] [place] [address] [address], [place], [place], [id number], tel:[phone] SEC [facility] [place] No Information 7200 8 Doisy Edward. [facility] [place] , [address], [place], [place], [facility], . tel:[phone] Referring Provider: Andrew Mederos, [address] [place] [address], [facility]. tel:[phone] [facility], [id number] [place] [address] [address], [place], [place], [id number], [place] tel:[phone] [facility] No Information 0 6200 8 Doisy Edward. [facility] , [address], [place], [place], [facility], [place]. tel:[phone] Referring Provider: Andrew Mederos, [address] [place] [address], [facility]. tel:[phone] Office/outpat ient Visit, [facility], [id number] [place] [address] [address], [place], [place], [id number], tel:[phone] SEC [facility] No Information 3200 8 Doisy Edmary. [address] [place] [address] , [address], [place], [place], [facility], . tel:[phone] Referring Provider: Andrew Mederos, [address] [place] [address], [facility]. tel:[phone] Family History Family Member Type Diagnosis Age At Onset No Information Payers Payer name Insurance type Covered libertarian ID Felipa barrientos(s) [facility] Commercial CI [id number] Social History Type Description Quantity Date Captured Comments Sex Female Smoking Status No Information Chief Complaint And Reason For Visit No Information Reason For Referral Reason For Referral No Information History Of Present Illness Encounter Date Complaint History Of Prese nt Illness No Information Functional Status Date Functional Assessmen t No Information Instructions Date Instruction Additional Infor mation No Information Assessments Type Assessment Date No Information Patient Care Teams Name Effective Dates (start - stop) Status Members No Information
--- NOTE | ~2025-01-30 | CT_ITS ---
CT abdomen pelvis w con INDICATION:hematochezia now BRBPR; LLQ pain . COMPARISON: 06/02/2022 TECHNIQUE: Axial images of the abdomen and pelvis were obtained following infusion of 100 mL Isovue 300. Dose optimization technique was utilized. FINDINGS: The lung bases are clear. Fatty infiltration of the liver is noted. No intrahepatic mass or ductal dilatation is evident. The gallbladder is unremarkable. The pancreas and spleen are normal in appearance. The adrenal glands are symmetric in size. The kidneys demonstrate symmetric uptake and excretion of contrast. No cystic mass is evident. There is no solid mass. There is no hydronephrosis. The stomach and small bowel loops unremarkable. Appendix is normal in appearance. There is diffuse thickening and induration of the transverse colon, descending and sigmoid colon suggestive of colitis. The bladder and rectum are normal. No free intraperitoneal fluid or air is evident. There is no significant retroperitoneal lymphadenopathy. The aorta, visceral vessels and renal arteries demonstrate normal caliber and patency. The lower thoracic and lumbar vertebrae are in normal alignment. IMPRESSION: Diffuse thickening of the transverse, descending and sigmoid colon with adjacent induration suggestive of infectious or inflammatory colitis. All CT scans at this facility are performed using low dose modulation techniques as appropriate to perform exam including the following: automated exposure control; use of iterative reconstruction technique; adjustment of the mA and/or kV according to patient size (this includes techniques or standardized protocols for targeted exams where dose is matched to indication/reason for exam). Reviewed, dictated and finalized at location S. E [facility]TER IMPRESSION: Diffuse thickening of the transverse, descending and sigmoid colon with adjacen t induration suggestive of infectious or inflammatory colitis. All CT scans at this facility are performed using low dose modulation techniqu es as appropriate to perform exam including the following: automated exposure c ontrol; use of iterative reconstruction technique; adjustment of the mA and/or kV according to patient size (this includes techniques or standardized protocol s for targeted exams where dose is matched to indication/reason for exam).
--- OUTSIDE RECORDS SUMMARY | 2025-01-30 19:28 | XMS_ITS | Encounter Summary ---
Author Organization [facility] Address [address] [place] [address] Care Team Providers Care Cyber Security Consultant Name Role Phone Unavailable Primary Care Provider Unavailabl e Encounter Details Date Type Department Care Team (Late st Contact Info) Description 06/18/2022 Lab Requisition [facility] DermPath Lab [address] [place] [id number] Lincoln Alejandre MD [address] [place] [address] Social History Tobacco Use Types [...] AM CDT) Case Report Dermatopathology Report Case: [id number] Authorizing Provider: Lincoln Alejandre MD Collected: 06/16/2022 12:00 AM Ordering Location: [facility] DermPath Lab Received: 06/18/2022 06:10 AM Pathologist: [...] characteristic determined by the Dermatopathology Laboratory at [facility], directed by Dr. Deedee Vyas. These tests need not be, and therefore are not, approved by the [place] Food and Drug Administration. The tests are used for clinical purposes. Billing Codes Specimen Charges Stain Charges 98211 1 3 2:53 PM CDT DERMATOPATHOLOGY LABORATORY Embedded Images 3 2:53 PM CDT DERMATOPATHOLOGY LABORATORY Pathology/Cytolog y TISSUE SPECIMEN FROM SKIN / Unknown 06/16/2022 06/18/2022 6:10 AM CDT Lincoln Alejandre MD LAB - PATHOLOGY/CYTOLOGY [facility] Final Result DERMATOPATHOLOGY LABORATORY [facility] - Department of Dermatology [address] [place] [address], [facility] [phone] documented in this encounter Visit Diagnoses Not on filedocumented in this encounter
--- OUTSIDE RECORDS SUMMARY | 2025-01-30 19:28 | XMS_ITS | Clinical Summary ---
Author Organization [facility] Address [address] [place] [address] Care Team Providers Care Clothespin Machine Operator Name Role Phone Unavailable Primary Care Provider Unavailabl e Source Comments [facility] [employer],non-owned Affiliates and Associated Physician Practices is amultiple site organization consisting of ambulatory clinics and hospital sitesin [place], [place], [place] and [place]. This disclosure is being madepursuant to the Care Everywhere program and may not contain all information available regarding this patient. Last updated 17.[facility] [employer] Social History Tobacco Use Types Packs/Day Years [...] 11/03/2011 ZOSTER VACCINE (1 of 2) 11/03/2011 DEPRESSION SCREENING 03/22/2024 COVID-19 VACCINE ( - 2023-2 5 season) 2024 INFLUENZA VACCINE (#1) 2024 Respiratory Syncytial Virus [...]
[2025-01-30 19:31] VITALS: BP 127/60; PULSE 85; RESP 20; TEMP 36.7; O2SAT 93
--- NOTE | 2025-01-30 20:10 | ED_ITS ---
HPI - GI Bleed General Chief complaint: Nausea/Vomiting/Diarrhea Stated complaint: vomiting, blood in stool Time Seen by Provider: 01/30/25 19:43 Source: patient and family () Mode of arrival: ambulatory Limitations: no limitations History of Present Illness HPI Narrative: 64-year-old female presents with report of nausea of vomiting and bloody diarrhea starting this morning. She had 5 episodes of emesis which has now stopped although she remains nauseated. Patient has had 7 or 8 episodes of bloody stool. She reports the 1st 5 or 6 or hematochezia and now she is just having bright red blood when she defecates. She states when she 1st started Zepbound she vomited like this but not since. No previous GI bleed. She does not follow regularly with a 411 directory assistance operator. Her last colonoscopy was approximately 10-15 years ago. She denies being on anticoagulation NSAIDs or steroids. She takes Tylenol b.i.d.. Her last bowel movement was at home. No history of diverticulitis. Denies any fevers or chills. She takes medication for blood pressure. She reports that her abdominal cramping had been generalized but now seems to be worse in her left lower quadrant. Related Data Home Medications ?Medication ?Instructions ?Recorded ?Confirmed ?Last Taken ?Type fexofenadine-pseudoephedrine ER 1 tablet PO DAILY 08/2101/31/25 Unknown History 180 mg-240 mg tablet,ext.release 24 hr (Laura-D 24 Hour) cholecalciferol (vitamin D3) 50 50 mcg PO DAILY PRN 01/31/25 Unknown History mcg (2,000 unit) capsule cyanocobalamin (vitamin B-12) 1,000 mcg PO DAILY 04/1101/31/25 Unknown History 1,000 mcg capsule acetaminophen 500 mg tablet 1,000 mg PO Q6H PRN 01/31/25 Unknown History amlodipine 10 mg tablet 10 mg PO HS 01/30/25 5 Unknown History Allergies Allergy/AdvReac Type Severity Reaction Status Date / Time No Known Allergies Allergy Verified 01/31/25 14:40 [facility] Past Medical History Medical History Hospital discharge follow-up Elevated blood sugar Colitis Ear ache Recurrent urinary tract infection Skin lesion of chest wall Cervical strain Lumbar strain Pain in right arm Leg pain Low back pain Lung infiltrate BMI 37.0-37.9, adult History of stress test (~10/2020) Asthma Primary osteoarthritis, right shoulder Pharyngitis Onychomycosis Apnea Pain due to onychomycosis of nail Irritable bowel syndrome with constipation Fall Lack of motivation BMI 36.0-36.9,adult Cervical spondylosis Anxiety disorder, unspecified Essential (primary) hypertension Mixed hyperlipidemia Hypothyroidism Low vitamin D level Mixed hyperlipidemia Moderate persistent asthma, uncomplicated Vitamin D deficiency, unspecified Surgical History Surgical History History of cataract extraction History of hysterectomy Family History Family History Mother Hypertension Cerebrovascular accident Family history of malignant neoplasm of uterus Family history of malignant neoplasm of breast in first degree relative Father Family history of coronary artery disease Sibling Diabetes mellitus Renal failure COPD (chronic obstructive pulmonary disease) Sibling No problems noted. 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 HEAD: Normocephalic, atraumatic. EYES: Non injected, non icteric ENT: Nares clear, no rhinorrhea or epistaxis. Gross auditory acuity intact. NECK: Supple. No meningismus. CHEST: Speaking in full sentences. No respiratory distress. HEART: Regular rate and rhythm. . ABDOMEN: Soft, nondistended. No rigidity or guarding. Not peritoneal. Mild TTP LLQ. FAMILIA : performed with in room and AUGUTSO Meier as entrance guard. Normal rectal tone. Bloody stool on gloved lubricated finger. FOBT/guiaic positive in parts of both windows on bedside assay. EXTREMITIES: Normal range of motion. SKIN: Warm, dry, no rash. NEURO: No focal deficits. Alert and oriented. Answering questions. Following commands. Normal speech without aphasia or dysarthria. PSYCH: Normal mood and affect. Course Vital Signs Vital signs: Vital Signs Temperature 98.0 F 01/30/25 19:31 Pulse Rate 85 01/30/25 19:31 Respiratory Rate 20 01/30/25 19:31 Blood Pressure 127/60 01/30/25 19:31 Pulse Oximetry 93 01/30/25 19:31 Oxygen Delivery Room Air 01/30/25 19:31 Temperature 98.0 F 01/30/25 19:31 Pulse Rate 67 01/31/25 01:28 Respiratory Rate 22 H 01/31/25 01:28 Blood Pressure 110/66 01/31/25 01:28 Pulse Oximetry 93 01/31/25 01:28 Oxygen Delivery Room Air 01/30/25 23:54 Oxygen Flow Rate 2 01/30/25 23:26 MDM - GI Bleed MDM Narrative Medical decision making narrative: The patient is a 64 year old who comes to the emergency department with hematochezia followed by bright red blooding per rectum that started today. Approximately 7-8 episodes total and associated with nausea/vomiting. Associated abdominal pain. In the ED they are initially afebrile and hemodynamically stable without tachycardia or hypotension. Based on history and physical, suspect lower GI bleed so will go ahead and order CBC, CMP, coagulation studies, lactate, and type and screen. Morphine and Zofran ordered. DIFFERENTIAL DIAGNOSIS My differential diagnosis at this time is diverticulitis versus IBD versus infectious diarrhea. Also considered diverticulosis versus angiodysplasia versus Meckel's diverticulum. Colon cancer is also possible. Possibly schemic bowel or anal fissure or hemorrhoids. Considered medication side effect. [place] Score (predicts readmission risk in patients with acute lower GI bleeding) Based on age, sex, previous lower GI bleed admission, FAMILIA findings, HR, SBP, and initial Hgb: 10 points Will discuss with 411 directory assistance operator however. She has a leukocytosis. Her hemoglobin is actually elevated, chronically so by review of the EMR and in fact elevated by 0.8 from previous. Repeat 4 hour H/H ordered. She has an ELBA. 1 L IV fluids ordered. Lactic acid normal. Bentyl ordered. Urinalysis positive for hematuria. Colitis on CT. Repeat H/H had been drawn only 30 minutes after initial (versus run on same tube versus run on another tube drawn at the same time) accidentally and did show a drop of 0.4g in that time span. Patient states she had not had a subsequent lab draw so this apparently was run on another tube drawn at the same time; within standard margin of error presumably. I did reassess patient at 10:05 p.m. she reports her pain is better she is continuing to feel nauseated. Famotidine and Reglan ordered. Discussed with [address] Saul Diaz. Recommend antibiotics. Cipro and flagyl are ordered. Otherwise has been hemodynamically stable. There does not seem to be a clear role for admission. Patient likely to benefit from a colonoscopy in the future but not urgently/emergently. Has not had other episodes of bloody stool/BRBPR since arrival. At 11:25pm RN notifies me that she is found to desaturated while sleeping, SpO2 in the mid 80s. She also will occasionally hold her breath, states she has always done this occasionally. O2 applied. Repeat H/H 1g drop, not anemic. She is reassessed at approximately midnight is off oxygen but is noted to be desaturated to 89% on room air she is slumped in the bed. She reports that she has been told that this happens and she has CPAP although her machine is currently broken. PCP Dr Brewer. She also reports that she is supposed to be on Symbicort 2 in the morning and 2 at night but has not taken any of her medications including inhaler today. This is ordered. Otherwise patient is stable for discharge. Patient DC's with Rx for Zofran, antibiotics x2, and Bentyl. Initially diagnosis of colitis had been omitted from DC instructions, added now. Lab Data Attestation: I reviewed the patient's lab results. 01/30/25 23:44 01/30/25 20:00 Labs: Lab Results 01/30/25 01/30/25 01/30/25 Range/Units 20:00 20:25 20:26 WBC 15.0 H (4.5-10.0) K/mm3 RBC 5.32 (4.2-5.4) M/mm3 Hgb 15.9 H 15.5 H (12.0-15.0) g/dL Hct 48.4 H 47.7 H (37.0-47.0) % MCV 91.0 (80-100) fl MCH 29.9 (26-34) pg MCHC 32.9 (32-36) g/dl RDW 13.6 (11.5-14.5) % Plt Count 209 (150-375) k/mm3 MPV 10.4 (7.4-10.4) fl Immature Gran % (Auto) 0.5 (0-0.5) % Neut % (Auto) 70.3 (45.5-73.1) % Lymph % (Auto) 19.3 (18.3-44.2) % Navarro % (Auto) 9.2 H (2.6-8.5) % Eos % (Auto) 0.4 (0-4.4) % Baso % (Auto) 0.3 (0.2-1.2) % Lymph # (Auto) 2.88 (0.9-3.2) K/mm3 Navarro # (Auto) 1.4 H (0.1-0.6) K/mm3 Eos # (Auto) 0.1 (0-0.3) K/mm3 Baso # (Auto) 0.0 (0.0-0.1) K/mm3 Abs Immat Gran (auto) 0.07 H (0.00-0.031) K/mm3 Absolute Neuts (auto) 10.5 H (1.3-6.7) K/mm3 Absolute Nucleated RBC 0.000 (0.0-0.012) K/mm3 Nucleated RBC % 0.0 (0.0-0.2) % PT 13.9 (11.1-14.7) Seconds INR 1.1 APTT 26.1 (22.3-36.8) Seconds Sodium 137 (137-145) mmol/L Potassium 4.1 (3.4-5.0) mmol/L Chloride 103 (98-107) mmol/L Carbon Dioxide 26 (22-30) mmol/L Anion Gap 8 (4-12) mmol/L BUN 28 H (7-17) mg/dL Creatinine 1.27 H (0.7-1.0) mg/dL Estim Creat Clear Calc 42 ml/min Estimated GFR 42 L (59 - ) Glucose 120 H (65-110) mg/dL Lactic Acid 1.2 (0.7-2.0) mmol/L Calcium 9.0 (8.4-10.2) mg/dL Total Bilirubin 0.7 (0.2-1.3) mg/dL AST 26 (14-36) U/L ALT 22 (6-35) U/L Alkaline Phosphatase 63 (38-126) U/L NT-Pro-B Natriuret Pep 30 (19.9-100) pg/mL Total Protein 7.4 (6.3-8.2) g/dL Albumin 4.0 (3.5-5.1) g/dL Lipase 57 (23-300) U/L Urine Color Dark yellow (Yellow) Urine Appearance Cloudy H (Clear) Urine pH 5.0 (5.0-9.0) Ur Specific Parlin 1.022 (1.001-1.035) Urine Protein Trace (Negative) mg/dL Urine Glucose (UA) Negative (Negative) mg/dL Urine Ketones Trace H (Negative) mg/dL Ur Blood (Man) 3+ H (Negative) Urine Nitrate Negative (Negative) Urine Bilirubin Negative (Negative) Urine Urobilinogen 1.0 (<2.0) mg/dL Add Ur Microanalysis Reviewed Leukocyte Esterase Rfl 1+ H (Negative) CHAVEZ/UL Urine RBC 11-20 H (0-2) /hpf Urine WBC 0-5 (0-3) /hpf Ur Squamous Epith Cells Few (Few) /hpf Urine Bacteria Rare /hpf Urine Casts 3-5 Urine Yeast (Budding) Present H (None) /hpf Blood Type O Positive Antibody Screen Negative 01/30/25 Range/Units 23:44 WBC (4.5-10.0) K/mm3 RBC (4.2-5.4) M/mm3 Hgb 14.9 (12.0-15.0) g/dL Hct 45.6 (37.0-47.0) % MCV (80-100) fl MCH (26-34) pg MCHC (32-36) g/dl RDW (11.5-14.5) % Plt Count (150-375) k/mm3 MPV (7.4-10.4) fl Immature Gran % (Auto) (0-0.5) % Neut % (Auto) (45.5-73.1) % Lymph % (Auto) (18.3-44.2) % Navarro % (Auto) (2.6-8.5) % Eos % (Auto) (0-4.4) % Baso % (Auto) (0.2-1.2) % Lymph # (Auto) (0.9-3.2) K/mm3 Navarro # (Auto) (0.1-0.6) K/mm3 Eos # (Auto) (0-0.3) K/mm3 Baso # (Auto) (0.0-0.1) K/mm3 Abs Immat Gran (auto) (0.00-0.031) K/mm3 Absolute Neuts (auto) (1.3-6.7) K/mm3 Absolute Nucleated RBC (0.0-0.012) K/mm3 Nucleated RBC % (0.0-0.2) % PT (11.1-14.7) Seconds INR APTT (22.3-36.8) Seconds Sodium (137-145) mmol/L Potassium (3.4-5.0) mmol/L Chloride (98-107) mmol/L Carbon Dioxide (22-30) mmol/L Anion Gap (4-12) mmol/L BUN (7-17) mg/dL Creatinine (0.7-1.0) mg/dL Estim Creat Clear Calc ml/min Estimated GFR (59 - ) Glucose (65-110) mg/dL Lactic Acid (0.7-2.0) mmol/L Calcium (8.4-10.2) mg/dL Total Bilirubin (0.2-1.3) mg/dL AST (14-36) U/L ALT (6-35) U/L Alkaline Phosphatase (38-126) U/L NT-Pro-B Natriuret Pep (19.9-100) pg/mL Total Protein (6.3-8.2) g/dL Albumin (3.5-5.1) g/dL Lipase (23-300) U/L Urine Color (Yellow) Urine Appearance (Clear) Urine pH (5.0-9.0) Ur Specific Parlin (1.001-1.035) Urine Protein (Negative) mg/dL Urine Glucose (UA) (Negative) mg/dL Urine Ketones (Negative) mg/dL Ur Blood (Man) (Negative) Urine Nitrate (Negative) Urine Bilirubin (Negative) Urine Urobilinogen (<2.0) mg/dL Add Ur Microanalysis Leukocyte Esterase Rfl (Negative) CHAVEZ/UL Urine RBC (0-2) /hpf Urine WBC (0-3) /hpf Ur Squamous Epith Cells (Few) /hpf Urine Bacteria /hpf Urine Casts Urine Yeast (Budding) (None) /hpf Blood Type Antibody Screen Imaging Data Radiologist's impression: Impressions Abdomen/Pelvis CT 01/30/25 21:22 IMPRESSION: Diffuse thickening of the transverse, descending and sigmoid colon with adjacent induration suggestive of infectious or inflammatory colitis. All CT scans at this facility are performed using low dose modulation techniques as appropriate to perform exam including the following: automated exposure control; use of iterative reconstruction technique; adjustment of the mA and/or kV according to patient size (this includes techniques or standardized protocols for targeted exams where dose is matched to indication/reason for exam). Discharge Plan Discharge Clinical Impression: Hematochezia, BRBPR (bright red blood per rectum), Leukocytosis, ELBA (acute kidney injury), Microscopic hematuria, Hypoxia, sleep related, Colitis Patient Disposition: Home Condition: Stable Instructions: Antibiotic Form, Gastrointestinal Bleeding (ED), Rectal Bleeding (ED), Acute Kidney Injury (DC), Abdominal Pain (ED) Additional Instructions: Take the combination of medications prescribed. The dicyclomine/Bentyl works on the smooth muscle the GI tract and can help abdominal pain/cramping. Ondansetron/Zofran may help nausea vomiting. Take The combination of antibiotics. You received your first dose in the ED. Do not drink alcohol while on Flagyl as it can make you feFollow-up with the 411 directory assistance operator listed below. Also recommend up with your primary care physician, especially for issues related to your CPAP machine. Continue taking/using your other medications as prescribed. Patient Language: Estonian Prescriptions: New dicyclomine 20 mg tablet 20 mg PO BID Qty: 20 0RF ondansetron 4 mg tablet,disintegrating 4 mg PO Q8H PRN (Reason: nausea and vomiting) Qty: 7 0RF ciprofloxacin HCl [Cipro] 500 mg tablet 500 mg PO Q12H 7 Days Qty: 14 0RF metronidazole 500 mg tablet 500 mg PO Q8H 7 Days Qty: 21 0RF No Action Luara-D 24 Hour 180-240 mg tablet extended release 24 hr 1 tablet PO DAILY cholecalciferol (vitamin D3) 50 mcg (2,000 unit) capsule 50 mcg PO DAILY PRN cyanocobalamin (vitamin B-12) 1,000 mcg capsule 1,000 mcg PO DAILY levothyroxine [Synthroid] 75 mcg tablet 75 mcg PO DAILY Qty: 90 0RF cyclobenzaprine 10 mg tablet 10 mg PO TID PRN (Reason: muscle spasm) Qty: 30 2RF acetaminophen 500 mg tablet 1,000 mg PO Q6H PRN amlodipine 10 mg tablet 10 mg PO HS bupropion HCl 150 mg tablet sustained-release 12 hr 150 mg PO BID Qty: 60 0RF benazepril 20 mg tablet 20 mg PO DAILY Qty: 90 1RF albuterol sulfate 2.5 mg /3 mL (0.083 %) solution for nebulization 2.5 mg inhalation Q4-6H PRN (Reason: shortness of breath or wheezing) Qty: 75 0RF albuterol sulfate 90 mcg/actuation HFA aerosol inhaler See Rx Instructions .ROUTE .COMPLEX Qty: 8.5 2RF Dose Instruction: INHALE 2 PUFFS BY MOUTH EVERY 4 HOURS NEEDED FOR SHORTNESS OF BREATH OR WHEEZING Rx Instructions: INHALE 2 PUFFS BY MOUTH EVERY 4 HOURS NEEDED FOR SHORTNESS OF BREATH OR WHEEZING montelukast 10 mg tablet See Rx Instructions .ROUTE .COMPLEX Qty: 90 1RF Dose Instruction: TAKE 1 TABLET BY MOUTH DAILY Rx Instructions: TAKE 1 TABLET BY MOUTH DAILY hydrochlorothiazide 12.5 mg tablet 12.5 mg PO DAILY Qty: 90 1RF rosuvastatin 20 mg tablet 20 mg PO DAILY Qty: 90 1RF gabapentin 300 mg capsule 300 mg PO DAILY Qty: 90 1RF budesonide-formoterol [Symbicort] 160-4.5 mcg/actuation HFA aerosol inhaler 1 puff inhalation Q12H Qty: 10.2 3RF Follow-up/Referrals: Thuan Ruby MD [Physician, Gastroenterology] Lincoln Alejandre MD [Primary Care Provider, Family Practice] Stand Alone Forms: Work/School Release IP Time of Disposition: 00:59
[2025-01-30 20:14] LABS: Hematocrit 48.4 % (37.0-47.0); Hemoglobin 15.9 g/dL (12.0-15.0); Immature Granulocyte Percent A 0.5 % (0-0.5); Lymphocytes Absolute Auto 2.88 K/mm3 (0.9-3.2); Mean Corpuscular HGB Conc 32.9 g/dl (32-36); Mean Corpuscular Hemoglobin 29.9 pg (26-34); Mean Corpuscular Volume 91.0 fl (80-100); Nucleated Red Blood Cells Absolute Auto 0.000 K/mm3 (0.0-0.012); Nucleated Red Blood Cells Perc 0.0 % (0.0-0.2); Platelet Count Result 209 k/mm3 (150-375); Red Blood Count 5.32 M/mm3 (4.2-5.4); White Blood Count 15.0 K/mm3 (4.5-10.0)
[2025-01-30] MEDS: MORPHINE SULFATE (*CRX) 4 MG/ML INJ IV PUSH (20:27)
[2025-01-30] MEDS: ONDANSETRON INJ 4 MG/2 ML VIAL IV PUSH (20:27)
[2025-01-30 20:28] LABS: Alanine Aminotransferase 22 U/L (6-35); Albumin Level 4.0 g/dL (3.5-5.1); Alkaline Phosphatase 63 U/L (38-126); Anion Gap 8 mmol/L (4-12); Aspartate Amino Transferase 26 U/L (14-36); Bilirubin,Total 0.7 mg/dL (0.2-1.3); Blood Urea Nitrogen 28 mg/dL (7-17); Calcium 9.0 mg/dL (8.4-10.2); Carbon Dioxide 26 mmol/L (22-30); Chloride 103 mmol/L (98-107); Estimated CRCL calculation 42 ml/min; Estimated Glomerular Filt Rate 42; Glucose 120 mg/dL (65-110); INR 1.1; Partial Thromboplastin Time 26.1 Seconds (22.3-36.8); Potassium 4.1 mmol/L (3.4-5.0); Prothrombin Time 13.9 Seconds (11.1-14.7); Sodium 137 mmol/L (137-145); Total Protein 7.4 g/dL (6.3-8.2)
[2025-01-30 20:34] LABS: Hematocrit 47.7 % (37.0-47.0); Hemoglobin 15.5 g/dL (12.0-15.0)
[2025-01-30 20:41] LABS: Lipase 57 U/L (23-300)
[2025-01-30 20:44] LABS: NT Pro B Type Natriuretic Pept 30 pg/mL (19.9-100)
[2025-01-30] MEDS: SODIUM CHLORIDE 0.9% IV 1,000 ML 999 ML IV CONT (20:51)
[2025-01-30] MEDS: DICYCLOMINE HCL 10 MG CAPSULE 20 MG PO (20:52)
[2025-01-30 20:54] LABS: Add Urine Microscopic? YES; Appearance Urine Cloudy (Clear); Glucose Urine UA Negative (Negative); Leukocyte Esterase Ur 1+ LEU/UL (Negative); Need Manual Microscopic Reviewed; Nitrate Urine Negative (Negative); Specific Grav Ur 1.022 (1.001-1.035)
[2025-01-30 20:55] LABS: Budding Yeast Urine Present /hpf
[2025-01-30 21:35] VITALS: BP 117/60; PULSE 71; RESP 21; O2SAT 94
[2025-01-30 22:16] VITALS: BP 117/67; PULSE 74; RESP 19; O2SAT 98
[2025-01-30] MEDS: METOCLOPRAMIDE HCL INJ 10 MG/2 ML VIAL 5 MG IV PUSH (22:31)
[2025-01-30] MEDS: metroNIDAZOLE 500 MG/ISO 100ML 500 MG/100 ML BAG 100 MG IVPB (22:31)
[2025-01-30] MEDS: FAMOTIDINE 20 MG/2 ML VIAL IV PUSH (22:31)
[2025-01-30 23:00] VITALS: BP 119/87; PULSE 71; RESP 21; O2SAT 94
[2025-01-30 23:26] VITALS: O2SAT 83; O2SAT 93
[2025-01-30] MEDS: CIPROFLOXACIN 400 MG/D5W 200ML 200 ML 200 MG IVPB (23:41)
[2025-01-30 23:49] LABS: Hematocrit 45.6 % (37.0-47.0); Hemoglobin 14.9 g/dL (12.0-15.0)
[2025-01-30 23:54] VITALS: O2SAT 96
[2025-01-31] MEDS: FLUTICASONE/SALMETEROL 115-21 MCG INHALER 1 PUFF 2 PUFF INHALATION (00:22)
[2025-01-31 00:50] VITALS: PULSE 75; RESP 21; O2SAT 93
[2025-01-31 01:28] VITALS: BP 110/66; PULSE 67; RESP 22; O2SAT 93
== END 2025-01-31 01:12 | disposition home or self-care (01) ==
PROVIDERS: Emergency Provider Student in an Organized Health Care Education/Training Program; PCP Family Medicine
DX: K52.9 Noninfective gastroenteritis and colitis, unspecified (principal); N17.9 Acute kidney failure, unspecified; K92.1 Melena; R31.29 Other microscopic hematuria; G47.34 Idiopathic sleep related nonobstructive alveolar hypoventilation; I10 Essential (primary) hypertension; E78.2 Mixed hyperlipidemia; E03.9 Hypothyroidism, unspecified; E55.9 Vitamin D deficiency, unspecified; J45.40 Moderate persistent asthma, uncomplicated; K58.1 Irritable bowel syndrome with constipation; M19.011 Primary osteoarthritis, right shoulder; F41.9 Anxiety disorder, unspecified; F17.210 Nicotine dependence, cigarettes, uncomplicated; Z87.440 Personal history of urinary (tract) infections; Z90.710 Acquired absence of both cervix and uterus; Z98.49 Cataract extraction status, unspecified eye; Z79.899 Other long term (current) drug therapy
CPT/HCPCS: 12002; 36415; 74177; 80053; 81001; 83605; 83690; 83880; 85014; 85018; 85025; 85610; 85730; 86850; 86900; 86901; 87086; 94664; 96361; 96365; 96367; 96375; 99284; A9270; J0744; J1836; J2270; J2405; J2765; J7030; Q9967

== ENCOUNTER 2025-03-01 01:09 | Day surgery (SDC) | payer MEDICARE, SELFPAY ==
[2025-02-19 15:11] VITALS: BMI 38.3
--- OUTSIDE RECORDS SUMMARY | 2025-03-01 01:11 | XMS_ITS | Clinical Summary ---
Author Organization [facility] Address [address] [place] [address] Care Team Providers Care Janitorial Tech Name Role Phone Unavailable Primary Care Provider Unavailabl e Source Comments [facility] [employer]non-owned Affiliates and Associated Physician Practices is amultiple site organization consisting of ambulatory clinics and hospital sitesin [place], [place], [place] and [place]. This disclosure is being madepursuant to the Care Everywhere program and may not contain all information available regarding this patient. Last updated 17.[facility] [employer] Social History Tobacco Use Types Packs/Day Years [...] DEPRESSION SCREENING 03/22/2024 COVID-19 VACCINE ( - 2024-2 6 season) 2024 INFLUENZA VACCINE (#1) 2024 Respiratory [...]
[2025-03-01 08:45] VITALS: BP 122/77; PULSE 92; RESP 16; TEMP 36.2; O2SAT 93; BMI 37.0
[2025-03-01] MEDS: LACTATED RINGERS 1,000 ML 150 ML IV CONT (08:54)
--- NOTE | 2025-03-01 08:55 | WPDANESEPPF ---
Anes - Initial Pre Proc Eval Procedure: Operation Date: 03/01/25 10:00 Proposed Procedures p Diagnostic Colonoscopy - Logan Haider MD Date/Time: 03/01/25 08:55 Surgeon: Logan Haider MD Pre Op Diagnosis: Noninfective gastroenteritis and colitis, unspecif Patient Data Age: 64 Gender: F Height: 1.55 m Weight: 89 kg Last Vital Signs Temp 97.2 F L 03/01/25 08:45 Pulse 92 03/01/25 08:45 Resp 16 03/01/25 08:45 BP 122/77 03/01/25 08:45 Pulse Ox 93 03/01/25 08:45 O2 Del Method Room Air 03/01/25 08:45 Allergies Allergy/AdvReac Type Severity Reaction Status Date / Time No Known Allergies Allergy Verified 03/01/25 08:43 Home Medications ?Medication ?Instructions ?Recorded ?Confirmed ?Type fexofenadine-pseudoephedrine ER 1 tablet PO DAILY 09/15/19 03/01/25 History 180 mg-240 mg tablet,ext.release 24 hr (Laura-D 24 Hour) bupropion HCl 150 mg tablet,12 hr 150 mg PO BID #60 tabs 02/04/24 03/01/25 Rx sustained-release cholecalciferol (vitamin D3) 50 50 mcg PO DAILY 04/11/24 03/01/25 History mcg (2,000 unit) capsule cyanocobalamin (vitamin B-12) 1,000 mcg PO DAILY 04/11/24 03/01/25 History 1,000 mcg capsule levothyroxine 75 mcg tablet 75 mcg PO DAILY #90 tabs 05/23/24 03/01/25 Rx (Synthroid) albuterol sulfate 2.5 mg/3 mL 2.5 mg (3 mL) inhalation Q4-6H PRN 08/02/24 02/19/25 Rx (0.083 %) solution for nebulization shortness of breath or wheezing #75 mL albuterol sulfate 90 mcg/actuation See Rx Instructions .Route 09/19/24 02/19/25 Rx aerosol inhaler .COMPLEX #8.5 grams acetaminophen 500 mg tablet 1,000 mg PO Q6H PRN pain 11/14/24 02/19/25 History hydrochlorothiazide 12.5 mg tablet 12.5 mg PO DAILY #90 tabs 11/22/24 03/01/25 Rx gabapentin 300 mg capsule 300 mg PO DAILY #90 caps 01/02/25 03/01/25 Rx amlodipine 10 mg tablet 10 mg PO HS 01/30/25 03/01/25 History dicyclomine 20 mg tablet 20 mg PO BID #20 tabs 01/31/25 03/01/25 Rx benazepril 20 mg tablet 20 mg PO DAILY #100 tabs 02/06/25 03/01/25 Rx budesonide-formoterol HFA 160 2 puff inhalation Q12H #30.6 grams 02/06/25 03/01/25 Rx mcg-4.5 mcg/actuation aerosol inhaler (Symbicort) rosuvastatin 20 mg tablet 20 mg PO DAILY #100 tabs 02/06/25 03/01/25 Rx Patient hx anesthesia problems: none Family hx anesthesia problems: none Results Review: All pre-operative results and documents have been reviewed as part of the pre-operative evaluation. [facility] Past Medical History Medical History Diarrhea Hospital discharge follow-up Elevated blood sugar Colitis Ear ache Recurrent urinary tract infection Skin lesion of chest wall Cervical strain Lumbar strain Pain in right arm Leg pain Low back pain Lung infiltrate BMI 37.0-37.9, adult History of stress test (~10/2020) Asthma Primary osteoarthritis, right shoulder Pharyngitis Onychomycosis Apnea Pain due to onychomycosis of nail Irritable bowel syndrome with constipation Fall Lack of motivation BMI 36.0-36.9,adult Cervical spondylosis Anxiety disorder, unspecified Essential (primary) hypertension Mixed hyperlipidemia Hypothyroidism Low vitamin D level Mixed hyperlipidemia Moderate persistent asthma, uncomplicated Vitamin D deficiency, unspecified Surgical History Surgical History History of cataract extraction History of hysterectomy Family History Family History Mother Hypertension Cerebrovascular accident Family history of malignant neoplasm of uterus Family history of malignant neoplasm of breast in first degree relative Father Family history of coronary artery disease Sibling Diabetes mellitus Renal failure COPD (chronic obstructive pulmonary disease) Sibling No problems noted. 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 Informed Consent: The patient's anesthetic plan and its attendant risks and benefits were discussed with the patient/family/POA. Questions were solicited and answers provided to the satisfaction of the patient/family/POA.
--- NOTE | 2025-03-01 09:00 | PM.IMHP2 ---
H&P: HPI History of Present Illness Date/Time: 03/01/25 09:00 Chief Complaint: Screening colonoscopy Narrative: This is the patient's 2nd screening colonoscopy. There are no GI symptoms and there is no family history of colorectal cancer. Review of Systems Review of Systems: All systems reviewed & are unremarkable except as noted in HPI and below PMFSH Past Medical History Medical History Diarrhea Hospital discharge follow-up Elevated blood sugar Colitis Ear ache Recurrent urinary tract infection Skin lesion of chest wall Cervical strain Lumbar strain Pain in right arm Leg pain Low back pain Lung infiltrate BMI 37.0-37.9, adult History of stress test (~10/2020) Asthma Primary osteoarthritis, right shoulder Pharyngitis Onychomycosis Apnea Pain due to onychomycosis of nail Irritable bowel syndrome with constipation Fall Lack of motivation BMI 36.0-36.9,adult Cervical spondylosis Anxiety disorder, unspecified Essential (primary) hypertension Mixed hyperlipidemia Hypothyroidism Low vitamin D level Mixed hyperlipidemia Moderate persistent asthma, uncomplicated Vitamin D deficiency, unspecified Surgical History Surgical History History of cataract extraction History of hysterectomy Family History Family History Mother Hypertension Cerebrovascular accident Family history of malignant neoplasm of uterus Family history of malignant neoplasm of breast in first degree relative Father Family history of coronary artery disease Sibling Diabetes mellitus Renal failure COPD (chronic obstructive pulmonary disease) Sibling No problems noted. 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 Gender identity (if verbalized by the patient): Female Meds Home Medications and Allergies Home Medications ?Medication ?Instructions ?Recorded ?Confirmed ?Type fexofenadine-pseudoephedrine ER 1 tablet PO DAILY 09/15/19 03/01/25 History 180 mg-240 mg tablet,ext.release 24 hr (Laura-D 24 Hour) bupropion HCl 150 mg tablet,12 hr 150 mg PO BID #60 tabs 02/04/24 03/01/25 Rx sustained-release cholecalciferol (vitamin D3) 50 50 mcg PO DAILY 04/11/24 03/01/25 History mcg (2,000 unit) capsule cyanocobalamin (vitamin B-12) 1,000 mcg PO DAILY 04/11/24 03/01/25 History 1,000 mcg capsule levothyroxine 75 mcg tablet 75 mcg PO DAILY #90 tabs 05/23/24 03/01/25 Rx (Synthroid) albuterol sulfate 2.5 mg/3 mL 2.5 mg (3 mL) inhalation Q4-6H PRN 08/02/24 02/19/25 Rx (0.083 %) solution for nebulization shortness of breath or wheezing #75 mL albuterol sulfate 90 mcg/actuation See Rx Instructions .Route 09/19/24 02/19/25 Rx aerosol inhaler .COMPLEX #8.5 grams acetaminophen 500 mg tablet 1,000 mg PO Q6H PRN pain 11/14/24 02/19/25 History hydrochlorothiazide 12.5 mg tablet 12.5 mg PO DAILY #90 tabs 11/22/24 03/01/25 Rx gabapentin 300 mg capsule 300 mg PO DAILY #90 caps 01/02/25 03/01/25 Rx amlodipine 10 mg tablet 10 mg PO HS 01/30/25 03/01/25 History dicyclomine 20 mg tablet 20 mg PO BID #20 tabs 01/31/25 03/01/25 Rx benazepril 20 mg tablet 20 mg PO DAILY #100 tabs 02/06/25 03/01/25 Rx budesonide-formoterol HFA 160 2 puff inhalation Q12H #30.6 grams 02/06/25 03/01/25 Rx mcg-4.5 mcg/actuation aerosol inhaler (Symbicort) rosuvastatin 20 mg tablet 20 mg PO DAILY #100 tabs 02/06/25 03/01/25 Rx Allergies Allergy/AdvReac Type Severity Reaction Status Date / Time No Known Allergies Allergy Verified 03/01/25 08:43 Vital Signs Vital Signs - 24 hr 03/01/25 08:45 Temperature 97.2 F L Pulse Rate 92 Respiratory Rate 16 Blood Pressure 122/77 Pulse Oximetry 93 Oxygen Delivery Room Air Exam Const: General: cooperative and healthy appearing Resp: Effort & Inspection: normal respiratory effort and able to speak in complete sentences Auscultation: clear to auscultation bilaterally Cardio: Rate: regular rate Rhythm: regular rhythm GI: Inspection: normal to inspection GI Palp: No No hepatosplenomegaly present Auscultation: normal bowel sounds Rectal Exam: deferred Skin: General skin exam: normal color Psych: Appearance: grossly normal Mental Status: mental status grossly normal Assessment and Plan Assessment and plan (1) Encounter for screening colonoscopy: Code(s): Z12.11 - Encounter for screening for malignant neoplasm of colon Status: Acute Plan The patient is deemed a good candidate for the procedure. Consent signed. Will proceed. Prior Studies I have reviewed the following patient records and this information was taken into consideration when formulating the assessment and plan.: previous labs, previous ER visits, previous hospitalizations and previous clinic visits
--- NOTE | 2025-03-01 09:26 | S_PTH ---
PATIENT: Becky Buckley LOC: [facility] U#:[id number] AGE/SX: 64/F ROOM: RE03/01/[address]: Logan Haider MD : [id number] BED: DIS: 03/01/2025 SPEC #: [id number] RECD: 03/01/25 09:53 STATUS: LUCIO REQ #: [id number] CHUCHO: 03/01/25 09:[address]: Logan Haider DEPT: [facility] Surgical RECD BY: Iris Mills ENTERED: 03/01/25 09:53 SP TYPE: Surgical OTHR DR: Lincoln Alejandre MD Tissues: A - Colon Polypectomy Procedures: Hematoxylin and Eosin Stain Gross and Microscopic Level 4
[2025-03-01 09:30] VITALS: BP 110/48; PULSE 46; RESP 22; O2SAT 99
[2025-03-01 09:40] VITALS: BP 104/76; PULSE 60; RESP 27; O2SAT 93
[2025-03-01 09:50] VITALS: BP 110/75; PULSE 60; RESP 21; O2SAT 93
== END 2025-03-01 10:08 | disposition home or self-care (01) ==
PROVIDERS: PCP Family Medicine; Referring Provider Nurse Practitioner Family; Visit Provider Internal Medicine Gastroenterology
PROC: 0DJD8ZZ Inspection of Lower Intestinal Tract, Via Natural or Artificial Opening Endoscopic (ICD-10-PCS; CPT 45378; principal; 2025-03-01 10:00)
DX: Z12.11 Encounter for screening for malignant neoplasm of colon (principal); D12.2 Benign neoplasm of ascending colon; K57.30 Diverticulosis of large intestine without perforation or abscess without bleeding; E55.9 Vitamin D deficiency, unspecified; E78.2 Mixed hyperlipidemia; I10 Essential (primary) hypertension; F17.210 Nicotine dependence, cigarettes, uncomplicated
CPT/HCPCS: 45385; 88305; J2003; J2704; J7120